=== PATIENT | female | born 1990 | race Two or more races ===

== ENCOUNTER 2025-08-21 22:55 | Emergency (ER) | payer BC ==
[~2025-08-21] VITALS: Ht 157.5 cm; Wt 85.7 kg
[2025-08-21 23:43] VITALS: BP 114/75; O2SAT 100
[2025-08-21] MEDS ORDERED: ZEPBOUND5 MG/0.5 M SQ (23:46)
[2025-08-22] MEDS ORDERED: FAMOTIDINE/PF 20 MG/2 ML VIAL IV PUSH STA (00:23)
[2025-08-22] MEDS ORDERED: PROMETHAZINE HCL 50 MG/ML AMPUL IM STA (00:23)
[2025-08-22] MEDS ORDERED: 0.9 % SODIUM CHLORIDE 1,000 ML IV ONE (00:30)
[2025-08-22 01:28] LABS: BASO % 0.1 % (0.1-1.2); EOS # 0.00 (0.04-0.54); EOS % 0.0 % (0.7-7.0); LYMPH # 1.14 (1.18-3.74); LYMPH % 9.3 % (19.3-53.1); MEAN PLATELET VOLUME 10.90 fl (9.4-12.4); MONO # 0.28 (0.24-0.82); MONO % 2.3 % (4.7-12.5); NEUT # 10.73 (1.56-6.13); NEUT % 88.0 % (34.0-71.1); RED CELL DISTRIBUTION WIDTH 15.7 % (11.6-14.4)
[2025-08-22 02:02] LABS: ALT/SGPT 17.0 U/L (12-78); AST/SGOT 16.0 U/L (15-37); BILIRUBIN TOTAL 0.49 mg/dL (0.3-1.2); BUN CREA RATIO 17.0 (7.0-25.0); CREATININE SERUM 0.7 mg/dL (0.55-1.02); GFR 96.37; GLOBULINA 4.4 G/DL (2.4-3.5); GLUCOSE FASTING 115.0 mg/dL (65-100); OSMOLALITY SERUM 284.0 MOSM/KG (275-295)
[2025-08-22] MEDS ORDERED: MORPHINE SULFATE 4 MG/ML CARTRIDGE IV STA (03:34)
[2025-08-22] MEDS ORDERED: ONDANSETRON HCL 2 MG/ML VIAL IV STA (03:34)
[2025-08-22 04:01] LABS: URINE APPEARANCE Clear; URINE BILIRRUBIN Negative (NEGATIVE); URINE BLOOD Large; URINE COLOR Yellow; URINE GLUCOSE Negative (NEGATIVE); URINE LEUKOCYTE Negative; URINE NITRATE Negative; URINE PROTEIN Trace (NEGATIVE); URINE UROBILINOGEN 0.2 E.U./dl
[2025-08-22 04:05] LABS: URINE BACTERIA 169.1 uL (0.0-1933); URINE EPITHELIAL CELLS 5.5 uL (0.0-38.8); URINE RBC 170.7 uL (0.0-20.8); URINE WBC 7.9 uL (0.0-23.2)
[2025-08-22 04:22] LABS: URINE CAST 0.14 uL (0.0-1.40); URINE KETONE >=160 (NEGATIVE)
[2025-08-22] MEDS ORDERED: ZOFRAN8 MG PO (09:22)
[2025-08-22] MEDS ORDERED: PEPCID AC20 MG PO ×2 (09:22→23:14)
[2025-08-22] MEDS ORDERED: LEVSIN/SL0.125 MG SL (23:14)
[2025-08-22] MEDS ORDERED: PROTONIX40 MG PO (23:14)
== END 2025-08-22 09:31 | disposition home or self-care (01) ==
LOC: ER 22:55
PROVIDERS: General Practice
DX: R11.10 Vomiting, unspecified (principal)

== ENCOUNTER 2025-08-22 15:38 | Emergency (ER) | payer BC ==
[~2025-08-22] VITALS: Ht 157.5 cm; Wt 85.7 kg
[~2025-08-22 15:38] MED LIST: PEPCID AC20 MG PO; ZEPBOUND5 MG/0.5 M SQ; ZOFRAN8 MG PO
[2025-08-22] MEDS ORDERED: HYOSCYAMINE SULFATE 0.125 MG TAB.SUBL SL ONE (17:45)
[2025-08-22] MEDS ORDERED: 0.9 % SODIUM CHLORIDE 1,000 ML IV SCH (17:45)
[2025-08-22] MEDS ORDERED: KETOROLAC TROMETHAMINE 30 MG VIAL IU ONE (17:45)
[2025-08-22] MEDS ORDERED: ONDANSETRON HCL 2 MG/ML VIAL IV ONE (17:45)
[2025-08-22] MEDS ORDERED: FAMOtidine 10 MG/ML (4ML VIAL) IV PUSH ONE (17:45)
[2025-08-22 18:41] LABS: BASO % 0.1 % (0.1-1.2); EOS # 0.00 (0.04-0.54); EOS % 0.0 % (0.7-7.0); LYMPH # 1.51 (1.18-3.74); LYMPH % 12.3 % (19.3-53.1); MEAN PLATELET VOLUME 10.70 fl (9.4-12.4); MONO # 0.62 (0.24-0.82); MONO % 5.0 % (4.7-12.5); NEUT # 10.09 (1.56-6.13); NEUT % 82.2 % (34.0-71.1); RED CELL DISTRIBUTION WIDTH 15.9 % (11.6-14.4)
[2025-08-22 19:13] LABS: INR 1.12
[2025-08-22 19:25] LABS: ALT/SGPT 15 U/L (12-78); AST/SGOT 11 U/L (15-37); BILIRUBIN TOTAL 0.54 mg/dL (0.3-1.2); BUN CREA RATIO 13 (7.0-25.0); CREATININE SERUM 0.75 mg/dL (0.55-1.02); GFR 88.99; GLOBULINA 4.5 G/DL (2.4-3.5); GLUCOSE FASTING 97 mg/dL (65-100); OSMOLALITY SERUM 282 MOSM/KG (275-295)
[2025-08-22 19:58] LABS: HCG QUANTITATIVE < 1 mUI/mL (1-3)
[2025-08-22 20:21] LABS: URINE APPEARANCE Cloudy; URINE BILIRRUBIN Negative (NEGATIVE); URINE BLOOD Large; URINE COLOR Yellow; URINE GLUCOSE Negative (NEGATIVE); URINE LEUKOCYTE Trace; URINE NITRATE Negative; URINE PROTEIN 30 (NEGATIVE); URINE UROBILINOGEN 1.0 E.U./dl
[2025-08-22 20:25] LABS: URINE BACTERIA 8678.2 uL (0.0-1933); URINE CAST 1.61 uL (0.0-1.40); URINE EPITHELIAL CELLS 132.7 uL (0.0-38.8); URINE RBC 673.7 uL (0.0-20.8); URINE WBC 277.5 uL (0.0-23.2)
[2025-08-22 20:38] LABS: URINE KETONE >=160 (NEGATIVE)
[2025-08-22 20:46] LABS: URINE MUCUS MODERATE
[2025-08-22 20:47] LABS: TYPE CELLS SQUAMOUS
[2025-08-22] MEDS ORDERED: MORPHINE SULFATE 4 MG/ML CARTRIDGE IV ONE (21:00)
[2025-08-22] MEDS ORDERED: PROTONIX40 MG PO (23:14)
[2025-08-22] MEDS ORDERED: PEPCID AC20 MG PO (23:14)
[2025-08-22] MEDS ORDERED: LEVSIN/SL0.125 MG SL (23:14)
== END 2025-08-22 23:37 | disposition home or self-care (01) ==
LOC: ER 15:39
PROVIDERS: General Practice
DX: R11.2 Nausea with vomiting, unspecified (principal); R10.9 Unspecified abdominal pain; R11.10 Vomiting, unspecified